=== PATIENT | male | born 1995 | race African-American/Black ===

== ENCOUNTER → 2021-04-22 | Outpatient (REF) ==
--- NOTE | 2021-04-22 13:29 | REPPI ---
INDICATION: SHORTNESS OF BREATH, BACK PAIN. COMPARISON: None. FINDINGS: The superior mediastinal structures are midline. The cardiac silhouette is unremarkable in size, shape, and position. The diaphragmatic surfaces of the lungs are regular, and the costophrenic angles are clear. The pulmonary rollins are clear. The imaged osseous structures are intact. IMPRESSION: There is no acute cardiopulmonary disease. <Electronically signed by Ryan Mathias > 04/22/21 [id number]
--- NOTE | 2021-04-22 13:30 | REPPI ---
INDICATION: SHORTNESS OF BREATH, BACK PAIN. TECHNIQUE: Three views FINDINGS: The disc spaces are symmetric and well maintained throughout. Vertebral body height and alignment is within normal limits. The pedicles are intact bilaterally. IMPRESSION: Essentially unremarkable limited lumbosacral spine series. <Electronically signed by Ryan Mathias > 04/22/21 [id number]
== END ==
LOC: M PLAIMG 12:06
PROVIDERS: ATTEND Internal Medicine
DX: R06.02 Shortness of breath (principal); M54.5 Low back pain

== ENCOUNTER 2021-05-03 18:55 | Emergency (ER) | payer OTHER ==
[~2021-05-03] VITALS: Ht 167.6 cm; Wt 81.8 kg
--- NOTE | 2021-05-03 20:01 | REP ---
INDICATION: ANKLE PAIN AFTER "TWISTING IT" COMPARISON: None. TECHNIQUE: AP, lateral, bilateral oblique views. FINDINGS: Oblique fracture of the distal fibular metaphysis with overlying soft tissue swelling noted. IMPRESSION: Oblique fracture of the distal fibular metaphysis with soft tissue swelling. <Electronically signed by Philip Perez > 05/03/211957
[2021-05-03 21:32] VITALS: BP 133/90
== END 2021-05-03 21:36 | disposition home or self-care (01) ==
LOC: M ED 18:55
DX: S82.431A Displaced oblique fracture of shaft of right fibula, initial encounter for closed fracture (principal); X50.9XXA Other and unspecified overexertion or strenuous movements or postures, initial encounter; Y92.89 Other specified places as the place of occurrence of the external cause; Y99.0 Civilian activity done for income or pay